=== PATIENT | female | born 1990 | race Caucasian/White ===

== ENCOUNTER 2016-12-17 07:02 | Emergency (ER) | payer OTHER ==
[~2016-12-17] VITALS: Ht 157.5 cm; Wt 89.0 kg
[2016-12-17 07:04] VITALS: Ht 157.5 cm; Wt 89.0 kg
[2016-12-17 08:17] LABS: URINE BLOOD (Dip) POC Negative (NEGATIVE)
--- NOTE | 2016-12-17 08:27 | ERA ---
ER Documentation Chief Complaint Date/Time DATE: 12/17/16 TIME: 08:26 Chief Complaint lower abd pain x 1 day HPI 18-year-old female presenting with lower abdominal pain 1 day. Has not had symptoms like this before. Denies nausea, vomiting, diarrhea, constipation, dysuria, discharge, fever, chills. Has no other complaints and describes no other associated manifestations. No past medical history. Takes oral contraceptive pills. No recent travel. Nursing notes have been reviewed and are consistent with history given. ROS All systems reviewed and are negative except as per history of present illness. Allergies Allergies: Coded Allergies: No Known Allergy (Unverified , 12/17/16) PMhx/Soc Medical and Surgical Hx: pt denies Medical Hx, pt denies Surgical Hx Hx Alcohol Use: No Hx Substance Use: No Hx Tobacco Use: No Smoking Status: Never smoker Physical Exam Vitals Vital Signs Date Time Temp Pulse Resp B/P Pulse Ox O2 Delivery O2 Flow Rate FiO2 12/17/16 07:04 98.2 79 18 109/72 100 Physical Exam Const: Morbidly obese 26-year-old female no acute distress Head: Atraumatic Eyes: Normal Conjunctiva ENT: Normal External Ears, Nose and Mouth. Neck: Full range of motion..~ No meningismus. Resp: Clear to auscultation bilaterally Cardio: Regular rate and rhythm, no murmurs Abd: Soft, non tender, non distended. Normal bowel sounds. No McBurney's point tenderness. Negative psoas sign. Negative Corcoran sign. Skin: No petechiae or rashes Back: No midline or flank tenderness Ext: No cyanosis, or edema Neur: Awake and alert Psych: Normal Mood and Affect : Mild suprapubic tenderness. No adnexal tenderness. Results 24 hrs Laboratory Tests Test 12/17/16 08:23 Bedside Urine pH (LAB) 5.5 Bedside Urine Protein (LAB) Negative Bedside Urine Glucose (UA) Negative Bedside Urine Ketones (LAB) Negative Bedside Urine Blood Negative Bedside Urine Nitrite (LAB) Negative Bedside Urine Leukocyte Esterase (L Negative Procedures/MDM Patient presented with lower abdominal pain 1 day as described in history and physical examination. Suprapubic tenderness positive. Urine dip was ordered to initially evaluate patient along with urine . Both urine test were negative. Patient was then given be worked up for general abdominal pain. However, the patient stated that she did not want to stay and want to go. I spent 10+ minutes and adequately discussed with her the risks of leaving. She stated that she understood someone to leave. Patient signed an AMA form. Current diagnosis: Abdominal pain of unknown etiology Departure Diagnosis: Primary Impression: Abdominal pain Qualified Code: R10.30 - Lower abdominal pain Condition: Stable Patient Instructions: Abdominal Pain Additional Instructions: Follow-up with PCP. Return to emergency department immediately if symptoms worsen or change. Comments Patient signed out JASON ARZATE PA-C Dec 17, 2016 08:27
== END 2016-12-17 08:25 | disposition left against medical advice (07) ==
LOC: FTE 07:02
DX: R10.30 Lower abdominal pain, unspecified (principal)
CPT/HCPCS: 81003; Z7502; 99282